=== PATIENT | female | born 1990 | race African-American/Black ===

== ENCOUNTER 2022-06-03 17:04 | Observation (INO) | payer OTHER, SELFPAY ==
[2022-06-03] VITALS (29 sets, daily range): BP systolic 105–116; BP diastolic 57–72; PULSE 79–105; TEMP 37.2; O2SAT 94–100; BMI 25.6
--- NOTE | 2022-06-03 17:27 | OBADM ---
This patient, Barbara Puentes, admitted to the OB room 116 for observation for abdominal pain. Patient/family oriented to hospital policies and general routines including ID bracelet, bed and alarms, visiting hours, pain management, procedures, bathroom and other care routines, personal items, smoking policy, room service/diet, and visiting hours. Patient/Family are encouraged to report perceived risks to care and to ask questions if they do not understand what they are told or what they should do.
[2022-06-03 17:58] LABS: Appearance Urine Cloudy (Clear); Bilirubin Urine Negative (Negative); Blood Urine Negative (Negative); Color Urine Yellow (Yellow); Glucose Urine UA Negative (Negative); Ketones Urine Negative (Negative); Leukocyte Esterase Ur 1+ LEU/UL (Negative); Nitrate Urine Negative (Negative); Protein Urine 1+ mg/dL (Negative); pH Urine 6.5 (5.0-9.0)
[2022-06-03 18:16] LABS: Bacteria Urine Trace /hpf; Mucus Urine Rare /lpf; Squamous Epithelial Cell Urine Many /hpf (Few); Transitional Epi Cells Urine Rare /hpf (None Seen); WBC Urine 31-50 /hpf
[2022-06-03 18:26] LABS: Add Urine Microscopic? YES
--- NOTE | 2022-06-26 07:57 | PM.OBTRLD ---
OB - Triage/Final Diagnosis Visit Information Comments/Additional reasons for admission: I have assessed the risk for this patient, Barbara Puentes, and determined that she would benefit from observation care. Evaluation Laboratory results: Laboratory Tests 06/03/22 17:50 Urine Color Yellow Urine Appearance Cloudy H Urine pH 6.5 Ur Specific [place] 1.020 Urine Protein 1+ H Urine Glucose (UA) Negative Urine Ketones Negative Ur Blood (Man) Negative Urine Nitrate Negative Urine Bilirubin Negative Urine Urobilinogen 4.0 H Leukocyte Esterase Rfl 1+ H Urine RBC 3-5 H Urine WBC 31-50 H Ur Squamous Epith Cells Many H Ur Transition Epith Cell Rare Urine Bacteria Trace Urine Mucus Rare Final Diagnosis (1) False labor: Code(s): O47.9 - False labor, unspecified Status: Acute
== END 2022-06-03 19:57 | disposition home or self-care (01) ==
PROVIDERS: Advanced Practice Midwife; Admitting Provider Obstetrics & Gynecology; Visit Provider Obstetrics & Gynecology
DX: O47.03 False labor before 37 completed weeks of gestation, third trimester (principal); O26.893 Other specified pregnancy related conditions, third trimester; R10.9 Unspecified abdominal pain; Z3A.29 29 weeks gestation of pregnancy
CPT/HCPCS: 81001; 87086; 87088; G0378; G0379

== ENCOUNTER 2022-07-09 11:18 | Observation (INO) | payer OTHER, SELFPAY ==
[2022-07-09] VITALS (56 sets, daily range): BP systolic 102–126; BP diastolic 51–88; PULSE 80–145; O2SAT 71–100; BMI 27.3
[2022-07-09] MEDS: TERBUTALINE SULFATE 1 MG/ML VIAL (12:05)
--- NOTE | 2022-07-09 13:11 | PM.OBTRLD ---
OB - Triage/Final Diagnosis Visit Information Reason for evaluation: threatened labor Comments/Additional reasons for admission: I have assessed the risk for this patient, Barbara Puentes, and determined that she would benefit from observation care. Evaluation Vital signs: Vital Signs - 24 hr 07/09/22 11:39 07/09/22 11:46 07/09/22 12:01 Pulse Rate 95 114 H 126 H Blood Pressure 126/88 124/82 114/83 Pulse Oximetry 07/09/22 12:05 07/09/22 12:10 07/09/22 12:15 Pulse Rate Blood Pressure Pulse Oximetry 99 99 98 07/09/22 12:20 07/09/22 12:25 07/09/22 12:30 Pulse Rate Blood Pressure Pulse Oximetry 99 98 98 07/09/22 12:31 07/09/22 12:35 07/09/22 12:40 Pulse Rate 119 H Blood Pressure 119/66 Pulse Oximetry 99 98 07/09/22 12:45 07/09/22 12:50 07/09/22 12:55 Pulse Rate Blood Pressure Pulse Oximetry 99 98 98 07/09/22 12:58 07/09/22 12:59 07/09/22 12:59 Pulse Rate Blood Pressure Pulse Oximetry 90 90 90 07/09/22 12:59 07/09/22 13:01 07/09/22 13:04 Pulse Rate 101 H Blood Pressure 115/74 Pulse Oximetry 84 L 99 07/09/22 13:09 Pulse Rate Blood Pressure Pulse Oximetry 97
[2022-07-09] MEDS: TERBUTALINE SULFATE 1 MG/ML VIAL 0.25 MG SUB-Q (14:35)
[2022-07-09] MEDS: ACETAMINOPHEN 500 MG TABLET 1000 MG PO (14:42)
[2022-07-09] MEDS: LACTATED RINGERS 1,000 ML 125 ML IV CONT (14:44)
--- NOTE | 2022-07-09 15:09 | PC.NURSE ---
1152: RN called OB to report patient's FHT, contraction pattern of every 1 min, VS, and SVE. Orders to give a dose of Terbutaline Sulfate 0.25 mg sub-q. 1300: RN called OB to give an update on patient's status. OB aware of contractions spacing out, VS and FHT. Orders to cont. monitoring patient a little while longer then discharge home if contractions are gone. 1430: RN called OB to report pt requesting pain medication for cramping and contractions, OB aware of RN not able to find contractions on TOCO. OB also aware of indeterminate decels in baby heart rate. Orders to give Tylenol for cramping, one more dose of Terb, cont. to monitor patient, and start an IV to give 1 L bolus of LR.
--- NOTE | 2022-07-09 16:13 | PC.NURSE ---
1609: RN called OB to report that pt's contractions are now gone after 1 liter of LR and 0.25 mg of Terbutaline and that SVE remains the same (/ -). Orders to discharge patient home with discharge instructions.
--- NOTE | 2022-07-09 16:18 | OBADM ---
This patient, Barbara Puentes, admitted to the OB room Labor/Delivery/Recovery 104 for observation. Patient/family oriented to hospital policies and general routines including ID bracelet, bed and alarms, visiting hours, pain management, procedures, bathroom and other care routines, personal items, smoking policy, room service/diet, and visiting hours. Patient/Family are encouraged to report perceived risks to care and to ask questions if they do not understand what they are told or what they should do.
== END 2022-07-09 16:40 | disposition home or self-care (01) ==
PROVIDERS: Admitting Provider Obstetrics & Gynecology Gynecology; Visit Provider Obstetrics & Gynecology Gynecology
DX: O47.03 False labor before 37 completed weeks of gestation, third trimester (principal); Z3A.34 34 weeks gestation of pregnancy
CPT/HCPCS: 96360; 96361; 96372; A9270; G0378; G0379; J3105; J7120